=== PATIENT | female | born 1990 | race Caucasian/White ===

== ENCOUNTER 2020-04-23 09:06 | Emergency (ER) | payer OTHER ==
[2020-04-23] MEDS ORDERED: SODIUM CHLORIDE 0.9% (FLUSH) 10 ML SYG IV PRN (09:17)
--- NOTE | 2020-04-23 09:29 | ED.PDOC ---
History of Present Illness - General Chief Complaint: [employer] Problem Stated Complaint: Spotting, cramping Time Seen by Provider: 04/23/20 09:14 - History of Present Illness Initial Comments: 30 yo at 9 wga comes in with vaginal spotting one day. Hx of miscarriage one year ago at 9 wga. Does have cramping. no pads, just spotting. noo chest pain, shortness of breath or dizziness. no dysuria or fever. Patient has an appointment with ob in 4 days Allergies/Adverse Reactions: Allergies NO KNOWN ALLERGY Allergy (Verified 04/23/20 09:30) Home Medications: Ambulatory Orders Cephalexin Monohydrate [Keflex] 500 mg PO QID 5 Days #20 cap 04/23/20 Vit W/ Fe Polysacch C [Vitafol Ultra 29-0.6-0.4-200 mg] 04/23/20 Progesterone Micronized [Progesterone] 04/23/20 Review of Systems - Review of Systems Constitutional: Denies: chills, diaphoresis, fever, malaise EENTM: Denies: blurred vision, tearing, ear pain, nose pain Respiratory: Denies: cough, orthopnea, short of breath, stridor Cardiology: Denies: chest pain, edema, palpitations, syncope Gastrointestinal/Abdominal: Denies: constipation, diarrhea, nausea, vomiting Genitourinary: Denies: discharge, dysuria, frequency, hematuria Musculoskeletal: Denies: back pain, joint pain, muscle pain, muscle stiffness Skin: Denies: change in color, rash Neurological: Denies: headache, numbness, paresthesia, tingling, tremors, weakness Endocrine: Denies: excessive sweating, unexplained weight gain, unexplained w eight loss Hematologic/Lymphatic: Denies: anemia, blood clots, easy bleeding, easy bruising Family Medical History - Family History Mother Family History: Unknown Physical Exam - Physical Exam General Appearance: Alert, Comfortable, No apparent distress Eyes, Ears, Nose, Throat Exam: PERRL/EOMI, normal ENT inspection, TMs normal Neck: non-tender, full range of motion, supple, normal inspection Cardiovascular/Respiratory: regular rate, rhythm, no M/R/G, normal peripheral pulses, no JVD, normal breath sounds, no respiratory distress Gastrointestinal/Abdominal: normal bowel sounds, non tender, soft, no organomegaly, no pulsatile mass Rectal Exam: deferred Pelvic Exam: other - offerred a pelvic exam, patient declined Back Exam: normal inspection, no CVA tenderness, no vertebral tenderness Extremity: normal range of motion, non-tender, normal inspection, no pedal edema, no calf tenderness, normal capillary refill Neurologic: trainman II-XII nml as tested, no motor/sensory deficits, alert, normal mood/affect, oriented x 3 Skin Exam: normal color, warm/dry Lymphatic: no adenopathy Progress - Progress Progress: 04/23/20 11:05 patient resting comfortably. vss. patient declined pelvic exam at this time. pelvic US shows single live fetus. no evidence of ectopic. Small subchorionic hemorrhage. HR 181. Blood O+ so no indication for rhogam at this time. The data reviewed when caring for this patient included: nurse notes etc. The history and assessments from nurses notes were reviewed and considered, and the patient's home medication list was also reviewed and considered. My assessment and the results of testing completed here in the ED were discussed with the patient/family. All questions were answered, and they express understanding of my assessment and the plan. They have been instructed to return if their symptoms worsen, and have been asked to follow up with their primary care physician to recheck today's presenting complaint. Strict return precautions given. I have reviewed medication, benefits, alternatives and side effects. Patient decided to proceed with medication.patient was discharged home in stable condition. Shana Scott DO 801 pelvic US: 1. Single living intrauterine gestation. Yolk sac visualized. [place]- rump length measurements corresponding to EGA 8 weeks and 6 days with MIMI 27 November 2020. This is identical to the EGA by menstrual dates. HR 181 Small subchorionic hemorrhage. Normal position of the uterus. No free fluid in the cul-de-sac. 2. Right ovary is unremarkable. Left ovary not identified. No adnexal mass or dominant cyst. - Results/Orders Results/Orders: 04/23/20 09:17 IV Care:Saline Lock per Protoc QSHIFT Sodium Chloride 0.9% (Flush) [Saline Flush Syringe] 10 ml IV PRN PRN 04/23/20 09:25 COMPLETE METABOLIC PROFILE Stat HCG,QUANTITATIVE Stat 04/23/20 10:50 URINALYSIS Stat Laboratory Results WBC 6.9 K/mm3 (4.8-10.8) 04/23/20 09:25 RBC 4.78 M/mm3 (4.20-5.40) 04/23/20 09:25 Hgb 14.5 gm/dL (12.0-16.0) 04/23/20 09:25 Hct 40.6 % (36.0-47.0) 04/23/20 09:25 MCV 84.9 fl (81.0-99.0) 04/23/20 09:25 MCH 30.3 pg (27.0-31.0) 04/23/20 09:25 MCHC 35.7 g/dL (33.0-37.0) 04/23/20 09:25 RDW 12.8 % (11.5-14.5) 04/23/20 09:25 Plt Count 222 K/mm3 (130-400) 04/23/20 09:25 MPV 8.8 fl (7.40-10.4) 04/23/20 09:25 Absolute Neuts (auto) 5.10 K/uL (1.8-6.8) 04/23/20 09:25 Absolute Lymphs (auto) 1.30 K/uL (1.0-3.4) 04/23/20 09:25 Absolute Monos (auto) 0.40 K/uL (0.2-0.8) 04/23/20 09:25 Absolute Eos (auto) 0.10 K/uL (0.0-0.4) 04/23/20 09:25 Absolute Basos (auto) 0.00 K/uL (0.0-0.1) 04/23/20 09:25 Neutrophils % 74.4 % (42.0-78.0) 04/23/20 09:25 Lymphocytes % 18.4 % (20.0-50.0) L 04/23/20 09:25 Monocytes % 5.6 % (2.0-9.0) 04/23/20 09:25 Eosinophils % 1.1 % (1.0-5.0) 04/23/20 09:25 Basophils % 0.5 % (0.0-2.0) 04/23/20 09:25 PT 10.0 SECONDS (9.0-10.9) 04/23/20 09:25 INR 1.01 (0.9-1.15) 04/23/20 09:25 PTT (SP) 26.5 SECONDS (21.8-31.6) 04/23/20 09:25 Sodium 135 mmol/L (135-145) 04/23/20 09:25 Potassium 3.6 mmol/L (3.6-5.0) 04/23/20 09:25 Chloride 104 mmol/L (101-111) 04/23/20 09:25 Carbon Dioxide 23 mmol/L (21-31) 04/23/20 09:25 Anion Gap 11.6 (12-18) L 04/23/20 09:25 BUN 10 mg/dL (7-18) 04/23/20 09:25 Creatinine 0.52 mg/dL (0.6-1.3) L 04/23/20 09:25 BUN/Creatinine Ratio 19.2 (10-20) 04/23/20 09:25 Random Glucose 99 mg/dL (70-105) 04/23/20 09:25 Serum Osmolality 269.2 mOsm/L (275-295) L 04/23/20 09:25 Calcium 9.0 mg/dL (8.4-10.2) 04/23/20 09:25 Total Bilirubin 0.7 mg/dL (0.2-1.0) 04/23/20 09:25 AST 16 IU/L (10-42) 04/23/20 09:25 ALT 17 IU/L (10-60) 04/23/20 09:25 Alkaline Phosphatase 57 IU/L (42-121) 04/23/20 09:25 Serum Total Protein 7.4 gm/dL (6.4-8.2) 04/23/20 09:25 Albumin 4.1 g/dl (3.2-5.5) 04/23/20 09:25 Globulin 3.3 gm/dL (2.3-3.5) 04/23/20 09:25 Albumin/Globulin Ratio 1.2 (1.1-1.9) 04/23/20 09:25 Patient ABO/Rh O POSITIVE 04/23/20 09:25 Antibody Screen Cancelled 04/23/20 09:25 Departure - Departure Clinical Impression: Threatened UTI (urinary tract infection) Qualifiers: Urinary tract infection type: site unspecified Hematuria presence: without hematuria Qualified Code(s): N39.0 - Urinary tract infection, site not specified Time of Disposition: 11:29 Disposition: Discharge to Home or Self Care Condition: Good Departure Forms: ED Discharge - Pt. Copy, Patient Portal Self Enrollment Instructions: Threatened Miscarriage (DC), Urinary Tract Infections in , Bleeding In Early , Subchorionic Bleeding Prescriptions: Cephalexin Monohydrate [Keflex] 500 mg PO QID 5 Days #20 cap Home Medications: Ambulatory Orders Cephalexin Monohydrate [Keflex] 500 mg PO QID 5 Days #20 cap 04/23/20 Vit W/ Fe Polysacch C [Vitafol Ultra 29-0.6-0.4-200 mg] 04/23/20 Progesterone Micronized [Progesterone] 04/23/20
[2020-04-23 09:30] VITALS: O2SAT 98
--- NOTE | 2020-04-23 11:03 | US ---
EXAM DESCRIPTION: Pelvis Transvaginal: Ultrasound. CLINICAL HISTORY: 30 years Female Vaginal bleeding. Obstetrical history unknown. LMP 21 February 2020. EGA 8 weeks and 6 days. MIMI 27 November 2020 COMPARISON: None. TECHNIQUE: Transpelvic scanning through the urine filled bladder: Endovaginal scanning: [place]-scale and Doppler modes. FINDINGS: Uterus: Retroverted. 10.4 x 6.9 x 6.4 cm. 238.7 mL. Gestational sac: Unremarkable size and shape. AFV: Subjectively normal. pole: Mean crown-rump length 2.16 cm corresponds to EGA 8 weeks and 6 days. Yolk sac: 4.2 mm. heart tones: 181 bpm. Subchorionic hemorrhage: Hypoechoic region 2.4 x 1.3 x 0.7 cm. Cul-de-sac: No fluid. Comments: MIMI by crown-rump length is 27 November 2020. Right ovary 2.4 x 2.0 x 3.3 cm. 8.5 mL. Normal color Doppler vascularity. No dominant cyst.. No adnexal mass or free fluid. Left ovary not visualized. No adnexal mass or free fluid. IMPRESSION: 1. Single living intrauterine gestation. Yolk sac visualized. [place]-rump length measurements corresponding to EGA 8 weeks and 6 days with MIMI 27 November 2020. This is identical to the EGA by menstrual dates. Small subchorionic hemorrhage. Normal position of the uterus. No free fluid in the cul-de-sac. 2. Right ovary is unremarkable. Left ovary not identified. No adnexal mass or dominant cyst. Electronically signed by: Shimon Doyle MD 04/23/2020 11:01 AM CDT
[2020-04-23 12:10] VITALS: BP 129/82; TEMP 97.1
== END 2020-04-23 12:10 | disposition home or self-care (01) ==
LOC: ER 09:06
DX: O20.0 Threatened abortion (principal); O23.41 Unspecified infection of urinary tract in pregnancy, first trimester; O41.8X10 Other specified disorders of amniotic fluid and membranes, first trimester, not applicable or unspecified; Z3A.09 9 weeks gestation of pregnancy